=== PATIENT | male | born 1995 | race Caucasian/White ===

== ENCOUNTER 2017-02-08 12:18 | Emergency (ER) | payer MEDICAID ==
[~2017-02-08] VITALS: Ht 182.9 cm; Wt 129.3 kg
[~2017-02-08 12:18] MED LIST: ALBUTEROL200 PUFFS/ IH; AZITHROMYCIN250 MG PO; BACTRIM 400 MG-1 TAB PO; BROMFED DM COU118 ML PO; CEFDINIR 300MG300 MG PO; KEFLEX500 M1 PO; MEDROL 4MG. DOSE4 MG PO; MOTRIN 600MG.600 MG PO; NAPROSYN 500MG500 MG PO; NORCO 325 MG-51 TAB PO; SINGULAIR 10 MG10 MG PO; TESSALON PERLE100 M1 PO
--- OUTSIDE RECORDS SUMMARY | 2017-02-08 12:32 | External Medical Summary Rpt | CCD ---
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 RADEX 27217 [place] BEINE[place] D ELBOW 4 MEDICAL COMPLETE IMAGING MINIMUM 3 ASS VIEWS RADIOLOGI 25031 BRYANT BRYANT C 4 CONCHA CONCHA EXAMINATI ON KNEE 3 VIEWS FITTING 79407 SCIFRES SCIFRES SPECTACLE 4 ANG ANG S XCPT APHAKIA MONOFOCAL FRAMES V2020 SCIFRES SCIFRES PURCHASES 4 ANG ANG OPHTH 91118 SCIFRES SCIFRES MEDICAL 4 ANG ANG XM&EVAL COMPRHNSV ESTAB PT 1/> LENS V2784 SCIFRES SCIFRES POLYCARBO 4 ANG ANG YASMIN OR EQUAL ANY INDEX PER LENS SPHERE V2100 SCIFRES SCIFRES SINGLE 4 ANG ANG VISION PLANO +/- 4.00 PER LENS SCRATCH V2760 SCIFRES SCIFRES RESISTANT 4 ANG ANG COATING PER LENS RADEX 00113 [facility] RIBS UNI 4 [facility] W/POSTERO INC INC ANT CH MINIMUM 3 VIEWS RADEX 05247 BRYANT BRYANT RIBS 4 CONCHA CONCHA UNILATERA L 2 VIEWS RADEX 93286 KELLIE HOPKINS SHOULDER 4 [facility] COMPLETE INC INC MINIMUM 2 VIEWS RADIOLOGI 43161 KELLIE HOPKINS C EXAM 4 [facility] CHEST 2 INC INC VIEWS FRONTAL&L ATERAL IAADI 89705 KE[facility]IE [facility]OPKINS INFLUENZA 4 [facility] B VIRUS INC INC IAADI 85158 [facility] INFFLUENZ 4 [facility] A A VIRUS INC INC IAADIADOO 87607 YOANNA PINTO 3 STREPTOCO CCUS GROUP A ANTIBODY 50202 KELLIE HOPKINS BORDETELL 3 [facility] A INC INC NEBULIZER E0570 MARIYA MERAZ WITH 3 HOME HOME COMPRESSO MEDICAL MEDICAL R EQUIPME EQUIPME ADMN SET A7003 MARIYA MERAZ SM VOL 3 HOME HOME NONFILTR MEDICAL MEDICAL PNEUMAT EQUIPME EQUIPME NEBULIZR DISPBL IAADI 28935 KELLIE HOPKINS INFLUENZA 3 [facility] B VIRUS INC INC RADIOLOGI 91639 BRYANT HURTADO C EXAM 3 CONCHA CONCHA CHEST 2 VIEWS FRONTAL&L ATERAL PRESSURIZ 83890 KELLIE HOPKINS ED/NONPRE 3 [facility] SSURIZED INC INC INHALATIO N TREATMENT IAADI 81539 KELLIE HOPKINS INFFLUENZ 3 [facility] A A VIRUS INC INC PRESSURIZ 63604 YOANNA PINTO ED/NONPRE 3 SSURIZED INHALATIO N TREATMENT INJECTION J0696 YOANNA LENZ MILLIE 3 CEFTRIAXO NE SODIUM PER 250 MG INJECTION J1040 YOANNA LENZ MILLIE 3 METHYLPRE DNISOLONE ACETATE 80 MG THERAPEUT 39147 YOANNA PINTO IC 3 PROPHYLAC TIC/DX INJECTION SUBQ/IM ALBUTEROL J7620 YOANNA LENZ MILLIE TO 2.5 3 MG & IPRATROPI UM BROM TO 0.5 MG RADEX 82772 KELLIE HOPKINS FOOT 2 [facility] COMPLETE INC INC MINIMUM 3 VIEWS RADEX 85759 BRYANT BRYANT FOOT 2 CONCHA CONCHA COMPLETE MINIMUM 3 VIEWS RADEX 59978 BRYANT BRYANT ANKLE 2 CONCHA CONCHA COMPLETE MINIMUM 3 VIEWS RADIOLOGI 23714 KELLIE HOPKINS C 2 [facility] EXAMINATI INC INC ON FOOT 2 VIEWS RADEX 71134 [place] [facility] ANKLE 1 MEDICAL CONCHA COMPLETE IMAGING MINIMUM 3 ASS VIEWS RADEX 35361 [place] [facility] FOOT 1 MEDICAL CONCHA COMPLETE IMAGING MINIMUM 3 ASS VIEWS 1 VISN V2103 SABA PÉREZ PLANO 1 VISION ANG TO+/-4.00 D SPHER 0.12-2.00 D CYL EA FRAMES V2020 SABA PÉREZ PURCHASES 1 VISION ANG FITTING 59598 SABA PÉREZ SPECTACLE 1 VISION ANG S XCPT APHAKIA MONOFOCAL RADEX 55362 [place] [facility] FOOT 1 MEDICAL CONCHA COMPLETE IMAGING MINIMUM 3 ASS VIEWS IADNA 20796 Abby CASTILLO A STREPTOCO 1 ANNA PEREIRA CCUS PSC GROUP A QUANTIFIC ATION 00138 [place] ABDOMINAL 0 MEDICAL CONCHA REAL IMAGING TIME ASS W/IMAGE LIMITED CHIROPRA 83344 [place] LONG TIC 0 ROS MANIPULAT CHIROPRAC INGA TX TIC CENTE SPINAL 1-2 REGIONS CHIROPRA 59338 [place] LONG TIC 0 ROS MANIPLTV CHIROPRAC TX TIC CENTE EXTRASPIN AL 1/> REGION APPL 09827 [place] LONG MODALITY 0 ROS 1/> AREAS CHIROPRAC TRACTION TIC CENTE MECHANICA L APPL 25185 [place] LONG MODALITY 0 ROS 1/> AREAS CHIROPRAC ELEC TIC CENTE STIMJ UNATTENDE D APPL 41817 [place] LONG MODALITY 0 ROS 1/> AREAS CHIROPRAC ELEC TIC CENTE STIMJ UNATTENDE D CHIROPRAC 61595 [place] TIC 0 MANIPULAT CHIROPRAC CHIROPRAC INGA TX TIC CENTE TIC CENTE SPINAL 1-2 REGIONS APPL 72992 [place] LONG MODALITY 0 ROS 1/> AREAS CHIROPRAC TRACTION TIC CENTE MECHANICA L CHIROPRAC 81242 [place] LONG TIC 0 ROS MANIPLTV CHIROPRAC TX TIC CENTE EXTRASPIN AL 1/> REGION RPR&REFIT 75017 SABA MCNEIL, G 0 VISION IRAIDA A SPECTACLE S EXCEPT APHAKIA FRAMES V2020 SABA MCNEIL PURCHASES 0 VISION IRAIDA A 1 VISN V2103 SABA MCNEIL, PLANO 0 VISION IRAIDA A TO+/-4.00 D SPHER 0.12-2.00 D CYL EA IADNA 43736 Abby OAKES STREPTOCO 0 ANNA Ellis CCUS PSC GROUP A QUANTIFIC ATION IADNA 74266 Abby OAKES STREPTOCO 0 ANNA DENNIS PSC GROUP A QUANTIFIC ATION RADEX 98850 [facility] 0 Y Y MINIMUM 2 [facility] VIEWS RADEX 30495 KELLIE HOPKINS FINGR 9 [facility] MINIMUM [address] [facility] INC VIEWS CLTX 66145 JERRY MONTOYA FX 9 EMERGENCY SARAH SERVICES O PROX/MIDD LE PX/F/T ASSOCIATE W/O TAMMI S EA FITTING 83585 SABA SCIFRES, SPECTACLE 9 VISION ATA M S XCPT APHAKIA MONOFOCAL SPHERE V2100 SABA PÉREZ, SINGLE 9 VISION ATA M VISION PLANO +/- 4.00 PER LENS FRAMES V2020 SABA PÉREZ, PURCHASES 9 VISION ATA M OPHTH 36076 SABA PÉREZ, MEDICAL 9 VISION ATA Montero XM&EVAL COMPR[facility]NSV [facility] PT 1/> IADNA 85589 Abby OAKES STREPTOCO 9 ANNA Ellis CCUS PSC GROUP A QUANTIFIC ATION IADNA 83383 Abby OAKES STREPTOCO 9 ANNA Ellis CCUS PSC GROUP A QUANTIFIC ATION BLOOD 45814 Abby OAKES COUNT 9 ANNA Ellis COMPLETE PSC AUTO&AUTO DIFRNTL WBC RADEX 11355 KELLIE HOPKINS ELBOW 2 9 [facility] VIEWS INC INC RADEX 33970 KELLIE HOPKINS ELBOW 9 [facility] COMPLETE INC INC MINIMUM 3 VIEWS NONINVASI 12443 Abby OAKES VE 9 ANNA Ellis EAR/PULSE PSC OXIMETRY SINGLE DETER FRAMES V2020 TARUN MCNEIL, PURCHASES 8 IRAIDA A IRAIDA A SPHERE V2100 TARUN MCNEIL, SINGLE 8 IRAIDA A IRAIDA A VISION PLANO +/- 4.00 PER LENS OPHTH 52995 ROSANGELA ADAMES, MEDICAL 8 TRAE LARKIN XM&EVAL Jayro BEMRUDEZ NEW PT 1/> VST RPR&REFIT 74246 TARUN MCNEIL G 8 IRAIDA A IRAIDA A SPECTACLE S EXCEPT APHAKIA DETERMINA 20084 ROSANGELA ADAMES TION 8 TRAE LARKIN REFRACTIV W W E STATE CUL BACT 67648 [facility] XCPT 8 AMERIC AMERIC URINE HOLDING HOLDING BLOOD/STO OL AEROBIC ISOL IADNA 41676 Abby OAKES STREPTTRUPTI 8 ANNA Ellis CCUS PSC GROUP A QUANTIFIC ATION IADNA 18750 Abby OAKES STREPTOCO 8 ANNA Ellis CCUS PSC GROUP A QUANTIFIC ATION Encounters Encounter Start End Date Code Location Performer Type Date EMERGENCY 70503 FLAKITO RUIZ 6 6 [facility] MODERATE SEVERITY EMERGENCY 53592 KELLIE 6 6 [facility] DEPARTMEN INC T VISIT LOW/MODER SEVERITY HOSPITAL KE[facility] - 6 6 [facility] OUTPATIEN INC T EMERGENCY 73898 KELLIE 6 6 [facility] DEPARTMEN INC T VISIT LOW/MODER SEVERITY EMERGENCY 50167 FLAKITO RODRIGUEZ 6 6 PHYSICIAN [facility], [facility] T VISIT MODERATE SEVERITY HOSPITAL KELLIE - 6 6 [facility] OUTPATIEN INC T OFFICE [address] [facility] GUZMAN OUTPATIEN 5 5 PHYSICIAN MATTHEW T VISIT S GROUP 15 MINUTES OFFICE [address] [facility] GUZMAN OUTPATIEN 5 5 PHYSICIAN MATTHEW T VISIT S GROUP 10 MINUTES HOSPITAL KELLIE - 5 5 [facility] OUTPATIEN INC T OFFICE [address] [facility] GUZMAN OUTPATIEN 5 5 PHYSICIAN MATTHEW T VISIT S GROUP 15 MINUTES OFFICE [address] [facility] JEREMIAH OUTPATIEN 5 5 PHYSICIAN FERNANDA T VISIT S GROUP 10 MINUTES OFFICE [address] [facility] GUZMAN OUTPATIEN 5 5 PHYSICIAN MATTHEW T VISIT S GROUP 15 MINUTES OFFICE [address] [facility] JEREMIAH OUTPATIEN 5 5 PHYSICIAN FERNANDA T VISIT S GROUP 10 MINUTES OFFICE [address] [facility] GUZMAN OUTPATIEN 4 4 PHYSICIAN MATTHEW T VISIT S GROUP 15 MINUTES OFFICE [address] [facility] GUZMAN OUTPATIEN 4 4 PHYSICIAN MATTHEW T VISIT S GROUP 15 MINUTES HOSPITAL KELLIE - 4 4 [facility] OUTPATIEN INC T OFFICE 03120 Abby MORA OUTPATIEN 4 4 ANNA PEREIRA JEAbby T VISIT PSC 15 MINUTES EMERGENCY 80424 TRISTIN CLARK 4 4 PETER DEPARTMEN EMERGENCY T VISIT PHYS MODERATE SEVERITY OFFICE [address] [facility] GUZMAN OUTPATIEN 4 4 PHYSICIAN MATTHEW T VISIT S GROUP 10 MINUTES OFFICE [address] [facility] GUZMAN OUTPATIEN 4 4 PHYSICIAN MATTHEW T VISIT S GROUP 10 MINUTES OFFICE [address] [facility] GUZMAN OUTPATIEN 4 4 PHYSICIAN MATTHEW T VISIT S GROUP 15 MINUTES EMERGENCY 22108 [facility]LLIE 4 4 [facility] DEPARTMEN INC T VISIT LOW/MODER SEVERITY HOSPITAL KELLIE - 4 4 [facility] OUTPATIEN INC T EMERGENCY 62960 TRISTIN HINDS 4 4 PETER MATTHEW DEPARTMEN EMERGENCY T VISIT PHYS MODERATE SEVERITY OFFICE 24973 [facility] OUTPATIEN 4 4 MATTHEW MATTHEW T VISIT 10 MINUTES OFFICE 85991 [facility] GU[facility] OUTPATIEN 4 4 MATTHEW MATTHEW T VISIT 10 MINUTES HOSPITAL [facility] - 4 4 [facility] OUTPATIEN INC T OFFICE 64918 PERNELL CURRY PERNELL ANTOINETTE OUTPATIEN 4 4 T VISIT 25 MINUTES HOSPITAL KELLIE - 4 4 [facility] OUTPATIEN INC T EMERGENCY 33280 [facility] 4 4 [facility] DEPARTMEN INC T VISIT LOW/MODER SEVERITY EMERGENCY 12454 GI FLANNERY 4 4 DEPARTMEN T VISIT HIGH/URGE NT SEVERITY OFFICE [address] [facility] OUTPATIEN 4 4 PHYSICIAN T VISIT S GROUP 10 MINUTES OFFICE 25756 CHASITY CHASITY OUTPATIEN 4 4 KARIN KARIN T VISIT 10 MINUTES OFFICE [address] [facility] OUTPATIEN 4 4 PHYSICIAN T VISIT S GROUP [address]ES [address] [facility] OUTPATIEN 4 4 PHYSICIAN T VISIT S GROUP 10 MINUTES Emergency ESTRELLA Kellie Wang (ER) 4 10:00 4 11:20 [facility] KELLIE - 4 4 [facility] OUTPATIEN INC T EMERGENCY 83030 HIEU WANG [address] [facility] DEPARTMEN T VISIT MODERATE SEVERITY EMERGENCY 41950 [facility] 4 4 [facility] DEPARTMEN INC T VISIT LOW/MODER SEVERITY OFFICE 06603 A Rhonda CURRY OUTPATIEN 3 3 ANNA PEREIRA T VISIT PSC 15 MINUTES OFFICE 02497 A Rhonda MORA OUTPATIEN 3 3 ANNA PEREIRA JEA T VISIT PSC 15 MINUTES OFFICE [address] [facility] OUTPATIEN 3 3 PHYSICIAN T VISIT S GROUP 15 MINUTES OFFICE [address] [facility] OUTPATIEN 3 3 PHYSICIAN T VISIT S GROUP 15 MINUTES OFFICE [address] [facility] OUTPATIEN 3 3 PHYSICIAN T VISIT S GROUP 10 MINUTES OFFICE 65330 YOANNA PINTO OUTPATIEN 3 3 T VISIT 15 MINUTES OFFICE 84471 PERNELL CURRY OUTPATIEN 3 3 T VISIT 15 MINUTES HOSPITAL KELLIE - 3 3 [facility] OUTPATIEN INC T OFFICE 28924 KILPELA KILPELA OUTPATIEN 3 3 JEAbby JEA T VISIT 15 MINUTES EMERGENCY 00964 ROSANGELA FLANNERY 3 3 EMERGENCY DEPARTMEN SERVICES T VISIT HIGH/URGE NT SEVERITY HOSPITAL KELLIE - 3 3 [facility] OUTPATIEN INC T EMERGENCY 70513 [facility] 3 3 [facility] DEPARTMEN INC T VISIT LOW/MODER SEVERITY OFFICE 17427 YOANNA LENZ MILLIE OUTPATIEN 3 3 T VISIT [address] MIN[address]ES [address] [facility] OUTPATIEN 2 2 PHYSICIAN T VISIT S GROUP 15 MINUTES OFFICE 22917 CHASITY CHASITY OUTPATIEN 2 2 KARIN KARIN T VISIT 10 MINUTES OFFICE 68769 KILPELA KILPELA OUTPATIEN 2 2 JEA JEA T VISIT 15 MINUTES OFFICE 26803 KILPELA KILPELA OUTPATIEN 2 2 JEA JEA T VISIT 15 MINUTES OFFICE 81512 PERNELL ANTOINETTE PERNELL ANTOINETTE OUTPATIEN 2 2 T VISIT 15 MINUTES OFFICE 68991 YOANNA LENZ MILLIE OUTPATIEN 2 2 T VISIT 15 MINUTES EMERGENCY 63236 [facility] 2 2 [facility] DEPARTMEN INC T VISIT LOW/MODER SEVERITY HOSPITAL KELLIE - 2 2 [facility] OUTPATIEN INC T EMERGENCY 08300 ROSANGELA HOUSE 2 2 EMERGENCY ARIADNE DEPARTMEN SERVICES T VISIT MODERATE SEVERITY EMERGENCY 85351 HIEU WANG 2 2 III ARIADNE III ARIADNE DEPARTMEN T VISIT MODERATE SEVERITY EMERGENCY 63358 [facility] 2 2 [facility] DEPARTMEN INC T VISIT LIMITED/M INOR PROB HOSPITAL KELLIE - 2 2 [facility] OUTPATIEN INC T EMERGENCY 31799 [facility] 2 2 [facility] DEPARTMEN INC T VISIT LOW/MODER SEVERITY EMERGENCY 59330 ROSANGELA FLANNERY 2 2 EMERGENCY DEPARTMEN SERVICES T VISIT MODERATE SEVERITY HOSPITAL KELLIE - 2 2 [facility] OUTPATIEN INC T OFFICE 38611 PERNELL ANTOINETTE PERNELL ANTOINETTE OUTPATIEN 2 2 T VISIT 15 MINUTES OFFICE 51339 NEISHA DRIVER OUTPATIEN 2 2 CHR CHR T VISIT 10 MINUTES OFFICE 04288 A Rhonda CASTILLO A OUTPATIEN 1 1 ANNA PEREIRA T VISIT PSC 15 MINUTES OFFICE 82036 A Rhonda Mora OUTPATIEN 1 1 ANNA PEREIRA T VISIT PSC 15 MINUTES EMERGENCY 42739 ROSANGELA MIXON 1 1 EMERGENCY [facility] SERVICES T VISIT HIGH/URGE NT SEVERITY EMERGENCY 15404 [facility] 1 1 [facility] DEPARTMEN INC T VISIT LOW/MODER SEVERITY HOSPITAL KELLIE - 1 1 [facility] OUTPATIEN INC T OFFICE 18531 A Rhonda CASTILLO A OUTPATIEN 1 1 ANNA PEREIRA T VISIT PSC 15 MINUTES OFFICE 52109 A Rhonda CASTILLO A OUTPATIEN 0 0 ANNA PEREIRA T VISIT PSC 15 MINUTES HOSPITAL KELLIE - 0 0 [facility] OUTPATIEN INC T OFFICE 75585 A Rhonda CASTILLO A OUTPATIEN 0 0 ANNA PEREIRA T VISIT PSC 15 MINUTES OFFICE 04138 A Rhonda CASTILLO A OUTPATIEN 0 0 ANNA PEREIRA T VISIT PSC 15 MINUTES OFFICE 05085 A Rhonda CASTILLO A OUTPATIEN 0 0 ANNA PEREIRA T VISIT PSC 15 MINUTES OFFICE 29430 A Rhonda CASTILLO A OUTPATIEN 0 0 ANNA PEREIRA T VISIT PSC 15 MINUTES OFFICE 58661 A Rhonda Mora OUTPATIEN 0 0 ANNA PEREIRA T VISIT PSC 15 MINUTES OFFICE 82894 A Rhonda CASTILLO A OUTPATIEN 0 0 ANNA PEREIRA T VISIT PSC 15 MINUTES OFFICE 65485 A Abby ENGLE OUTPATIEN 0 0 ANNA PEREIRA C T VISIT PSC 15 MINUTES OFFICE 36751 A Rhonda CASTILLO A OUTPATIEN 0 0 ANNA PEREIRA C T VISIT PSC 15 MINUTES OFFICE 21191 Abby OAKES OUTPATIEN 0 0 ANNA Ellis T VISIT PSC 15 MINUTES HOSPITAL UNIVERSIT - 0 0 Y [facility] T OFFICE 61268 MARJ MCCALL OUTPATIEN 0 0 MEDICAL [facility]OOK[facility] T VISIT 5 SERV A MINUTES [facility] OFFICE 57208 MARJ AGUIRREALISON OUTPATIEN 0 0 MEDICAL COOKEI T VISIT SERV A 10 FOUNDATIO MINUTES HOSPITAL UNIVERSIT - 0 0 Y [facility] T OFFICE 34344 SONNY BOPATIEN 9 9 MEDICAL [place] T NEW [address] [facility] KELLIE - 9 9 [facility] OUTPATIEN INC T EMERGENCY 38806 KELLIE 9 9 [facility] DEPARTMEN INC T VISIT LOW/MODER SEVERITY OFFICE 83949 Abby OAKESPATIJOSE G 9 9 ANNA Ellis T VISIT PSC 15 MINUTES OFFICE 04232 Abby OAKES OUTPATIJOSE G 9 9 ANNA Ellis T VISIT PSC 15 MINUTES OFFICE 44262 Abby OAKES 9 9 ANNA Ellis T VISIT PSC 15 MINUTES OFFICE 60746 Abby OAKES OUTPATIJOSE G 9 9 ANNA Ellis T VISIT PSC 15 MINUTES OFFICE 07235 Abby OAKES OUTPATIJOSE G 9 9 ANNA Ellis T VISIT PSC 15 MINUTES OFFICE 44203 Abby OAKES OUTPATIJOSE G 9 9 ANNA Ellis T VISIT PSC 15 MINUTES OFFICE 78092 Abby OAKES 9 9 ANNA Ellis T VISIT PSC 15 MINUTES EMERGENCY 11930 [facility] 9 9 [facility] DEPARTMEN INC T VISIT LOW/MODER SEVERITY HOSPITAL KELLIE - 9 9 [facility] OUTPATIEN INC T EMERGENCY 11869 ROSANGELA STOKES, 9 9 EMERGENCY [facility] SERVICES T VISIT HIGH/URGE ASSOCIATE NT S SEVERITY OFFICE 56142 Abby OAKES OUTPATIEN 9 9 ANNA Ellis T VISIT PSC 15 MINUTES OFFICE 64840 Abby OAKES OUTPATIEN 9 9 ANNA Ellis T VISIT PSC 15 MINUTES OFFICE 97490 Abby OAKES OUTPATIEN 9 9 ANNA Ellis T VISIT PSC 15 MINUTES OFFICE 69726 Abby OAKES OUTPATIEN 9 9 ANNA Ellis T VISIT PSC 15 MINUTES OFFICE 74155 Abby OAKES OUTPATIEN 8 8 ANNA Ellis T VISIT PSC 15 MINUTES OFFICE 46270 Abby OAKES OUTPATIEN 8 8 ANNA Ellis T VISIT PSC 15 MINUTES OFFICE 92480 Abby OAKES OUTPATIEN 8 8 ANNA Ellis T VISIT PSC 15 MINUTES OFFICE 71697 Abby OAKES OUTPATIEN 8 8 ANNA Ellis T VISIT PSC 15 MINUTES OFFICE 86058 Abby OAKES OUTPATIEN 8 8 ANNA Ellis T VISIT PSC 15 MINUTES OFFICE 18485 [facility] OUTPATIEN 8 8 [facility] [place] T VISIT [facility] 15 BANK ACCT MINUTES OFFICE 17866 [facility] OUTPATIEN 8 8 [facility] [place] T VISIT [facility] 15 BANK ACCT MINUTES OFFICE 49323 Abby OAKES OUTPATIEN 8 8 ANNA Ellis T VISIT PSC 15 MINUTES OFFICE 54056 [facility] OUTPATIEN 8 8 [facility] [place] T VISIT [facility] 15 BANK ACCT MINUTES OFFICE 60383 [facility] OUTPATIEN 8 8 [facility] [place] T VISIT [facility] 15 BANK ACCT MINUTES OFFICE 21189 [facility] OUTPATIEN 8 8 [facility] [place] T VISIT [facility] 15 BANK ACCT MINUTES OFFICE 02189 [facility] OUTPATIEN 8 8 [facility] [place] T V[facility] 15 BANK ACCT MINUTES OFFICE 06064 [facility] OUTPATIEN 8 8 [facility] [place] T VISIT [facility] 15 BANK ACCT MINUTES OFFICE 82054 [facility] OUTPATIEN 8 8 [facility] [place] T VISIT [facility] 15 BANK ACCT MINUTES OFFICE 63341 [facility] OUTPATIEN 8 8 [facility] [place] T VISIT [facility] 15 BANK ACCT MINUTES OFFICE 76953 [facility] OUTPATIEN 8 8 [facility] [place] T VISIT [facility] 15 BANK ACCT MINUTES OFFICE 69960 [facility] OUTPATIEN 8 8 [facility] [place] T VISIT [facility] 15 BANK ACCT MINUTES OFFICE 50213 [facility] OUTPATIEN 8 8 [facility] [place] T VISIT [facility] 15 BANK ACCT MINUTES OFFICE 57683 [facility] OUTPATIEN 8 8 [facility] [place] T VISIT [facility] 15 BANK ACCT MINUTES OFFICE 85662 Abby OAKES OUTPATIEN 8 8 ANNA [place] VISIT PSC 15 MINUTES OFFICE 72258 Abby OAKES OUTPATIEN 8 8 ANNA [place] VISIT PSC 15 MINUTES OFFICE 75800 Abby OAKES OUTPATIEN 8 8 ANNA [place] VISIT PSC 15 MINUTES OFFICE 04227 [facility] OUTPATIEN 8 8 [facility] [place] T VISIT [facility] 15 BANK ACCT MINUTES OFFICE 91324 Abby OAKES OUTPATIEN 8 8 ANNA [place] VISIT PSC 15 MINUTES OFFICE 47512 [facility] OUTPATIEN 8 8 [facility] [place] T VISIT [facility] 15 BANK ACCT MINUTES OFFICE 56172 Abby OAKES OUTPATIJOSE G 8 8 ANNA [place] VISIT [facility] 15 MINUTES OFFICE 25827 Abby OAKES OUTPATIEN 8 8 ANNA [place] VISIT [facility] 15 MINUTES OFFICE 63380 [facility] OUTPATIEN 8 8 [facility]ALTH [place] T VISIT [facility] 15 BANK ACCT MINUTES
--- OUTSIDE RECORDS SUMMARY | 2017-02-08 12:32 | External Medical Summary Rpt | CCD ---
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 [facility] 15 BANK ACCT MINUT[facility] OFFICE 20211 [facility] OUTPATIEN 8 8 [facility] [place] T VISIT [facility] 15 BANK ACCT MINUTES OFFICE 50641 [facility] OUTPATIEN 8 8 [facility] [place] T VISIT [facility] 15 BANK ACCT MINUT[facility] OFFICE 24374 [facility] OUTPATIEN 8 8 [facility] T VISIT [facility] 15 BANK ACCT MINUTES OFFICE 32721 [facility] OUTPATIEN 8 8 [facility] [place] T VISIT [facility] 15 BANK ACCT MINUTES OFFICE 10452 Abby OAKES OUTPATIEN 8 8 [place] VISIT [facility] 15 MINUTES OFFICE 42704 Abby OAKES OUTPATIEN 8 8 [place] VISIT [facility] 15 MINUTES OFFICE 76356 Abby OAKES OUTPATIEN 8 8 ANNA [place] VISIT [facility] 15 MINUTES OFFICE 00040 [facility] OUTPATIEN 8 8 [facility] T VISIT [facility] 15 BANK ACCT MINUTES OFFICE 35271 Abby OAKES OUTPATIEN 8 8 ANNA [place] VISIT [facility] 15 MINUTES OFFICE 84548 [facility] OUTPATIEN 8 8 [facility] T VISIT [facility] 15 BANK ACCT MINUTES OFFICE 17178 Abby OAKES OUTPATIJOSE G 8 8 [place] VISIT [facility] 15 MINUTES OFFICE 79885 Abby OAKES OUTPATIEN 8 8 [place]NA [place] VISIT [facility] 15 MINUTES OFFICE 23505 [facility] OUTPATIEN 8 8 [facility] T VISIT [facility] 15 BANK ACCT MINUTES
--- OUTSIDE RECORDS SUMMARY | 2017-02-08 12:38 | External Medical Summary Rpt | CCD ---
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 [facility] OFFICE 52479 SHERYL BO 0 0 [facility] T VISIT SERV A 10 FOUNDATIO MINUTES OFFICE 76672 SHERYL BO 9 9 [facility] T NEW 20 SERV A MINUTES [facility] - 9 9 [facility] OUTPATIEN INC T EMERGENCY 13545 [facility] 9 9 [facility] DEPARTMEN INC T VISIT LOW/MODER SEVERITY OFFICE 27328 A Abby ENGLE OUTPATIEN 9 9 ANNA PEREIRA C T VISIT PSC 15 MINUTES OFFICE 08555 Abby OAKES OUTPATIEN 9 9 ANNA Ellis T VISIT PSC 15 MINUTES OFFICE 09294 Abby OAKES OUTPATIEN 9 9 ANNA Ellis T VISIT PSC 15 MINUTES OFFICE 34758 Abby OAKES OUTPATIEN 9 9 ANNA Ellis T VISIT PSC 15 MINUTES OFFICE 78417 Abby OAKES OUTPATIEN 9 9 ANNA Ellis T VISIT PSC 15 MINUTES OFFICE 43800 A Abby ENGLE OUTPATIEN 9 9 ANNA Ellis T VISIT PSC 15 MINUTES OFFICE 22266 A Abby ENGLE OUTPATIEN 9 9 ANNA Elils T VISIT PSC 15 MINUTES EMERGENCY 23356 ROSANGELA STOKES, 9 9 EMERGENCY [facility] DEPARTMEN SERVICES T VISIT HIGH/URGE ASSOCIATE NT S SEVERITY EMERGENCY 19029 [facility] 9 9 [facility] DEPARTMEN INC T VISIT LOW/MODER SEVERITY [facility]OSPITAL [facility] - 9 9 [facility] OUTPATI[facility] INC T OFFICE 35846 Abby OAKES OUTPATIEN 9 9 ANNA Ellis T VISIT PSC 15 MINUTES OFFICE 39839 Abby OAKES OUTPATIEN 9 9 ANNA Ellis T VISIT PSC 15 MINUTES OFFICE 42136 Abby OAKES OUTPATIEN 9 9 ANNA Ellis T VISIT PSC 15 MINUTES OFFICE 87635 Abby OAKES OUTPATIEN 9 9 ANNA Ellis T VISIT PSC 15 MINUTES OFFICE 82950 Abby OAKES OUTPATIEN 8 8 ANNA Ellis T VISIT PSC 15 MINUTES OFFICE 25906 Abby OAKES OUTPATIEN 8 8 ANNA Ellis T VISIT PSC 15 MINUTES OFFICE 37464 Abby OAKES OUTPATIEN 8 8 ANNA Ellis T VISIT PSC 15 MINUTES OFFICE 09522 Abby OAKES OUTPATIEN 8 8 ANNA [place] VISIT PSC 15 MINUTES OFFICE 41250 Abby OAKES OUTPATIEN 8 8 ANNA Ellis T VISIT PSC 15 MINUTES OFFICE 20145 [facility] OUTPATIEN 8 8 [facility] 15 BANK ACCT MINUTES OFFICE 44176 [facility] OUTPATIEN 8 8 [facility] 15 BANK ACCT MINUTES OFFICE 40742 Abby OAKES OUTPATIEN 8 8 ANNA Ellis T VISIT [facility] 15 MINUTES OFFICE 98467 [facility] OUTPATIEN 8 8 [facility] V[facility] 15 BANK ACCT MINUTES OFFICE 47877 [facility] OUTPATIEN 8 8 [facility] 15 BANK ACCT MINUTES OFFICE 64876 [facility] OUTPATIEN 8 8 [facility] 15 BANK ACCT MINUTES OFFICE 95877 [facility] OUTPATIEN 8 8 [facility] 15 BANK ACCT MINUTES OFFICE 27123 [facility] OUTPATIEN 8 8 [facility] 15 BANK ACCT MINUTES OFFICE 07697 [facility] OUTPATIEN 8 8 [facility] 15 BANK ACCT MINUT[facility] OFFICE 27011 [facility] OUTPATIEN 8 8 [facility] 15 BANK ACCT MINUTES OFFICE 00489 [facility] OUTPATIEN 8 8 [facility] 15 BANK ACCT MINUTES OFFICE 02011 [facility] OUTPATIEN 8 8 [facility] 15 BANK ACCT MINUTES OFFICE 43037 [facility] OUTPATIEN 8 8 [facility] T VISIT [facility] 15 BANK ACCT MINUTES OFFICE 66832 [facility] OUTPATIEN 8 8 [facility] V[facility] 15 BANK ACCT MINUTES OFFICE 45153 Abby OAKES OUTPATIEN 8 8 ANNA [place] VISIT [facility] 15 MINUTES OFFICE 30478 Abby OAKES OUTPATIEN 8 8 ANNA [place] VISIT [facility] 15 MINUTES OFFICE 85365 Abby OAKES OUTPATIEN 8 8 ANNA [place] VISIT [facility] 15 MINUTES OFFICE 19905 [facility] OUTPATIEN 8 8 [facility] V[facility] 15 BANK ACCT MINUTES OFFICE 77266 Abby OAKES OUTPATIEN 8 8 ANNA [place] VISIT [facility] 15 MINUTES OFFICE 47551 [facility] OUTPATIEN 8 8 [facility] 15 BANK ACCT MINUTES OFFICE 50299 Abby OAKES OUTPATIEN 8 8 ANNA [place] VISIT [facility] 15 MINUTES OFFICE 74083 Abby OAKES OUTPATIEN 8 8 ANNA [place] VISIT [facility] 15 MINUTES OFFICE 06453 [facility] OUTPATIEN 8 8 [facility] V[facility] 15 BANK ACCT MINUTES
--- OUTSIDE RECORDS SUMMARY | 2017-02-08 12:38 | External Medical Summary Rpt | CCD ---
Author Author , CHRISTIN [place] CHRISTIN Address Unknown Phone [email or web address] Care Team Providers Care Configuration Management Architect Name Role Phone A Rhonda CASTILLO MD [facility]SC, A Unavailable Unavailable Rhonda CASTILLO MD [facility] [employer] Unavailable Unavailable INC, [employer] [...] Unavailable Unavailable [facility] [facility] Un[facility] Un[place] [place] [facility] [place] [place] CHASITY KARIN, Unavailable Unavailable CHASITY KARIN CHASITY KARIN, Unavailable Unavailable CHASITY KARIN ADRIAN STOKES, Unavailable Unavailable ADRIAN STOKES GUZMAN MATTHEW, GUZMAN Unavailable Unavailable MATTHEW GUZMAN MATTHEW, GUZMAN Unavailable Unavailable MATTHEW [facility] Unavailable Unavailable INC, [facility] MCNEIL DONNA, MCNEIL DONNA Unavailable Unavailable MCNEIL DONNA, MCNEIL DONNA Unavailable Unavailable MCNEIL, IRAIDA A, Unavailable Unavailable MCNEIL, IRAIDA A [facility], Unavailable Unavailable [facility] BANEGAS MICHAEL, BANEGAS MICHAEL Unavailable Unavailable JEREMIAH FERNANDA, JEREMIAH Unavailable Unavailable FERNANDA [facility] Un[facility] Un[facility], [facility] [...] Unavailable MIXON KEVIN, MIXON Unavailable Unavailable KEVIN [facility] Unavailable Unavailable [facility], [facility], Unavailable Unavailable PLLC, [facility] [...] Unavailable Unavailable EQUIPME, [facility] Unavailable [facility]available EMERGENCY PHYS, [facility]YS [facility], Unavailable Unavailable [facility] WEHRMAN III ARIADNE, Unavailable Unavailable WEHRMAN III ARIADNE WEHRMAN III ARIADNE, Unavailable Unavailable WEHRMAN III ARIADNE GI PRUDENCIO, GI PRUDENCIO Unavailable Unavailable WELLS PRUDENCIO, WELLS PRUDENCIO Unavailable Unavailable WELLS SHA, WELLS SHA Unavailable Unavailable NESIHA CHR, NEISHA Unavailable Unavailable CHR CASTILLO A, CASTILLO A Unavailable Unavailable Abby CASTILLO C, CASTILLO, Unavailable Unavailable A C Purpose Continuity of Care Document - 03-14-2007 through 2016 Problems Code Diagnosis DOS Provider Status [id number] CUTANEOUS 07-24-2015 [facility] ABSCESS OF PHYSICIANS, RIGHT UPPER PLLC LIMB [id number] CELLULITIS 07-24-2015 [facility] OF RIGHT [facility] FINGER INC [id number] SUPERFICIAL 07-24-2015 [facility] FOREIGN PHYSICIANS, BODY RT PLLC THUMB INITIAL ENCNTR B372 CANDIDIASIS 06-06-2015 [facility] OF SKIN PHYSICIANS, AND NAIL PLLC H5213 MYOPIA 01-29-2015 MCNEIL DONNA BILATERAL 462 ACUTE 05-22-2014 [facility] PHARYNGITIS PHYSICIANS GROUP 7862 COUGH 05-22-2014 [facility] 25286 NAUSEA WITH 05-08-2014 [facility] VOMITING PHYSICIANS GROUP 1043 PAIN IN 04-10-2014 [place] SOFT [facility]ICAL TISSUES OF IMAGING ASS LIMB 72509 GENERALIZED 04-10-2014 [facility] PAIN [facility] INC 9595 INJURY 04-10-2014 [place] OTHER AND MEDICAL UNSPECIFIED IMAGING ASS FINGER 9599 INJURY 04-10-2014 [facility] OTHER AND [facility] UNSPECIFIED INC UNSPECIFIED SITE 4779 ALLERGIC 04-02-2014 [facility] RHINITIS PHYSICIANS CAUSE GROUP UNSPECIFIED 82860 EFFUSION OF 01-11-2014 [facility] ANKLE AND [facility] FOOT JOINT INC 53760 PAIN IN 01-11-2014 [place] JOINT, MEDICAL ANKLE AND IMAGING ASS FOOT 9597 INJURY 01-11-2014 [place] OTHER&UNSPE MEDICAL CIFIED KNEE IMAGING ASS LEG ANKLE&FOOT 42357 UNSPECIFIED 01-08-2014 A Rhonda CASTILLO SITE OF MD BOLDEN ANKLE SPRAIN AND STRAIN E8809 ACCIDENTAL 01-05-2014 [facility] FALL ON OR N EMERGENCY FROM OTHER PHYS STAIRS OR STEPS V719 OBSERVATION 01-05-2014 [place] FOR MEDICAL UNSPECIFIED IMAGING ASS SUSPECTED CONDITION 37165 ACUT 12-20-2013 [facility] SUPPRATV PHYSICIANS OTITIS GROUP MEDIA W/O SPONT RUP EARDRUM 40814 INTESTINAL 11-27-2013 [facility] INF PHYSICIANS ENTERITIS GROUP DUE OTH VIRAL ENTERITIS 09254 UNSPECIFIED 11-13-2013 [facility] INFECTIVE PHYSICIANS OTITIS GROUP EXTERNA 3829 UNSPECIFIED 11-13-2013 [facility] OTITIS PHYSICIANS MEDIA GROUP 79296 ASTHMA, 11-02-2013 [facility] UNSPECIFIED [facility] , INC UNSPECIFIED STATUS 39527 PAIN IN 11-02-2013 [place] JOINT, MEDICAL UPPER ARM IMAGING ASS 8419 SPRAIN&STRA 11-02-2013 [facility] IN N EMERGENCY UNSPECIFIED PHYS SITE ELBOW&FOREA RM 9190 ABRASION/FR 11-02-2013 [facility] ICION BURN N EMERGENCY OTH MX&UNS PHYS SITE W/O INF E8881 FALL 11-02-2013 [facility] RESULTING N EMERGENCY IN STRIKING PHYS AGAINST OTHER OBJECT 82723 EFFUSION OF 10-09-2013 [facility] LOWER LEG CONCHA JOINT 11521 PAIN IN 10-09-2013 [facility] JOINT, CONCHA LOWER LEG 8449 SPRAIN&STRA 10-09-2013 [facility] IN OF [facility] UNSPECIFIED INC SITE OF KNEE&LEG 8489 UNSPECIFIED 10-09-2013 [facility] SITE OF SPRAIN AND STRAIN 3671 MYOPIA 09-28-2013 SCIFRES ANG 9221 CONTUSION 06-13-2013 [facility] CURRY OF CHEST WALL 14073 PAIN IN 06-11-2013 [facility] JOINT, CONCHA SHOULDER REGION 03184 CHEST PAIN 06-11-2013 [facility] UNSPECIFIED CONCHA E8859 FALL FROM 06-11-2013 WELLS PRUDENCIO OTHER SLIPPING TRIPPING OR STUMBLING 4659 ACUTE URIS 06-07-2013 [facility] OF PHYSICIANS UNSPECIFIED GROUP SITE 4660 ACUTE 05-17-2013 CHASITY BRONCHITIS KARIN 486 PNEUMONIA, 03-13-2013 WEHRMAN III ORGANISM ARIADNE UNSPECIFIED 4770 ALLERGIC 07-12-2012 A Rhonda CASTILLO RHINITIS PSC DUE TO POLLEN 4619 ACUTE 05-24-2012 [facility] SINUSITIS, PHYSICIANS UNSPECIFIED GROUP 37809 UNS ADVRS 04-21-2012 [facility] EFF OTH RX PHYSICIANS MEDICINAL&B GROUP IOLOGICAL SBSTNC 06126 COUGH 03-11-2012 KILPELA JEA VARIANT ASTHMA 41539 SHORTNESS 03-05-2012 [facility] OF BREATH [facility] INC 77387 CONTUSION 11-09-2011 [place] OF FOOT EMERGENCY SERVICES E8888 OTHER FALL 11-09-2011 [facility] 50625 SPRAIN AND 10-19-2011 [facility] STRAIN OF [facility] UNSPECIFIED INC SITE OF FOOT 73921 CLOSED 10-12-2011 [facility] FRACTURE OF MEM HOSP METATARSAL INC BONE 9110 TRUNK 06-23-2011 [facility] ANTOINETTE ABRASION/FR ICTION BURN WITHOUT MENTION INF 9243 CONTUSION 03-24-2010 [facility] OF TOE [facility] INC 67988 CRUSHING 03-24-2010 [place] [place] INJURY OF EMERGENCY FOOT SERVICES 88364 ABDOMINAL 01-30-2010 [place] PAIN RIGHT MEDICAL UPPER IMAGING ASS QUADRANT 19333 VOMITING 01-28-2010 A Rhonda VEE MD PSC [...] 05-02-2009 A Rhonda EVANGELISTA MD PSC THROAT 98784 CLOS 04-11-2009 [place] [facility] MID/PROXIMA FOUNDATIO L PHALANX/PHA LANG HAND V5412 AFTERCARE 04-11-2009 [place] [facility] TRAUMATIC FOUNDATIO FRACTURE LOWER ARM V5489 OTHER 04-11-2009 [facility] AFTERCARE 08145 CLOSED 02-28-2009 [place] [facility] UNSPEC FOUNDATIO PHALANX/PHA LANGES HAND 75549 UNSPECIFIED 12-05-2008 A Rhonda CASTILLO VIRAL PSC INFECTION IN CCE & UNS SITE 0088 INTESTINAL 11-15-2008 A Rhonda CASTILLO INFECTION PSC DUE TO OTHER ORGANISM NEC 4720 CHRONIC 10-03-2008 A Rhonda CASTILLO RHINITIS PSC 72211 ASTHMA 10-03-2008 A Rhonda BAEZIFIED PSC WITH STATUS ASTHMATICUS 72082 CONTUSION 09-08-2008 [facility] E8490 PLACE OF 09-08-2008 [place] OCC[facility]RENCE[facility] 2398 NEOPLASM 07-02-2008 A Rhonda BAEZ MD PSC NATURE OTHER SPEC SITES 7242 LUMBAGO 05-22-2008 A Rhonda CASTILLO MD [facility] 7847 EPISTAXIS 05-22-2008 A Rhonda CASTILLO MD [facility] 17635 PRECORDIAL 02-04-2008 A Rhonda CASTILLO PAIN [facility] 7841 THROAT PAIN 11-25-2007 [facility] 3814 NONSUPPRATV 06-30-2007 A Rhonda CASTILLO OTITIS PSC MEDIA NOT SPEC ACUT/CHRON 91393 CHRONIC 03-28-2007 A Rhonda CASTILLO OBSTRUCTIVE PSC [...] 0 20 10 EA 20 MU Ac MA 09 -2 -[address] 94 LL [...] CY OF CY NT HI AN A MA 00 11 11 0 20 5 EA [...] Procedure DOS Code Location Performer Comment INCISION 71826 [facility] RENUSCH & 6 PHYSICIAN LISHA DRAINAGE S, PLLC ABSCESS SIMPLE/SI NGLE THERAPEUT 14384 [facility] IC 6 [facility] PROPHYLAC INC INC TIC/DX INJECTION SUBQ/IM OPHTH 45219 MCNEILKRYSTA THOMPSON [facility] MEDICAL 5 XM&EVAL COMPRHNSV ESTAB PT 1/> FRAMES V2020 MCNEILKRYSTA THOMPSON MCNEIL DONNA PURCHASES 5 1 VISN V2103 MCNEILKRYSTA THOMPSON MCNEIL DONNA PLANO 5 TO+/-4.00 D SPHER 0.12-2.00 D CYL EA SCRATCH V2760 MCNEILKRYSTA THOMPSON MCNEIL DONNA RESISTANT 5 COATING PER LENS LENS V2784 MCNEILKRYSTA THOMPSON MCNEIL DONNA POLYCARBO 5 YASMIN OR EQUAL ANY INDEX PER LENS FITTING 21108 MCNEILKRYSTA ANDERSONNES DONNA SPECTACLE 5 S XCPT APHAKIA MONOFOCAL IAADIADOO 30968 [facility] GUZMAN 5 PHYSICIAN MATTHEW STREPTOCO S GROUP CCUS GROUP A RADEX 77115 [facility] CON[facility] MINIMUM 2 IMAGING VIEWS ASS IAADIADOO 53491 [facility] GUZMAN 4 PHYSICIAN MATTHEW STREPTOCO S GROUP CCUS GROUP A RADEX 75178 [facility] BEINEKE FOOT 4 MEDICAL ELVIS COMPLETE IMAGING MINIMUM 3 ASS VIEWS RADEX 07288 [facility] BEINEKE ANKLE 4 MEDICAL ELVIS COMPLETE IMAGING MINIMUM 3 ASS VIEWS RADEX 42017 [facility] BRYANT ANKLE 4 MEDICAL CONCHA COMPLETE IMAGING MINIMUM 3 ASS VIEWS RADEX 87848 [facility] BRYANT FOOT 4 MEDICAL CONCHA COMPLETE IMAGING MINIMUM 3 ASS VIEWS ANK FT L1906 [facility] 4 TECHNOLOG TECHNOLOG MX-LIG IES INC IES INC ANK SUPT PREFB OFF SHELF RADEX 11869 [facility] PALACIOS D ELBOW 4 MEDICAL COMPLETE IMAGING MINIMUM 3 ASS VIEWS RADIOLOGI 93324 [facility] BRYANT C 4 CONCHA CONCHA EXAMINATI ON KNEE 3 VIEWS SPHERE V2100 SCIFRES SCIFRES SINGLE 4 ANG ANG VISION PLANO +/- 4.00 PER LENS FITTING 47537 SCIFRES SCIFRES SPECTACLE 4 ANG ANG S XCPT APHAKIA MONOFOCAL OPHTH 40736 SCIFRES SCIFRES MEDICAL 4 ANG ANG XM&EVAL COMPRHNSV ESTAB PT 1/> FRAMES V2020 SCIFRES SCIFRES PURCHASES 4 ANG ANG SCRATCH V2760 SCIFRES SCIFRES RESISTANT 4 ANG ANG COATING PER LENS LENS V2784 SCIFRES SCIFRES POLYCARBO 4 ANG ANG YASMIN OR EQUAL ANY INDEX PER LENS RADEX 96992 [facility] RIBS UNI 4 [facility] W/POSTERO INC INC ANT CH MINIMUM 3 VIEWS RADEX 44181 [facility] BRYANT RIBS 4 CONCHA CONCHA UNILATERA L 2 VIEWS RADEX 10360 [facility] SHOULDER 4 [facility] COMPLETE INC INC MINIMUM 2 VIEWS RADIOLOGI 69143 [facility] C EXAM 4 MEM [facility]OS[facility] CHEST 2 INC INC VIEWS FRONTAL&L ATERAL IAADI 20137 [facility] INFLUENZA 4 [facility] B VIRUS INC INC IAADI 48709 [facility] KELLIE INFFLUENZ 4 MEM HOSP [facility]OS[facility] A A VIRUS INC INC IAADIADOO 05000 Y[facility]ANNA PINTO 3 STREPTOCO CCUS GROUP A ADMN SET A7003 [facility] MERAZ SM VOL 3 HOME HOME NONFILTR MEDICAL MEDICAL PNEUMAT EQUIPME EQUIPME NEBULIZR DISPBL NEBULIZER E0570 MARIYA MARIYA WITH 3 HOME HOME COMPRESSO MEDICAL MEDICAL R EQUIPME EQUIPME ANTIBODY 08464 [facility] BORDETELL 3 [facility] HOS[facility]OS[facility] A INC INC IAADI 36972 [facility] INFLUENZA 3 [facility] B VIRUS INC INC IAADI 71052 [facility] RODRIGUEZON INFFLUENZ 3 MEM HOSP [facility]OS[facility] A A VIRUS INC INC RADIOLOGI 13300 [facility] HURTADO C EXAM 3 CONCHA CONCHA CHEST 2 VIEWS FRONTAL&L ATERAL PRESSURIZ 32728 [facility] ED/NONPRE 3 [facility] SSURIZED INC INC INHALATIO N TREATMENT ALBUTEROL J7620 YOANNA LENZ MILLIE TO 2.5 3 MG & IPRATROPI UM BROM TO 0.5 MG THERAPEUT 99486 YOANNA PINTO IC 3 PROPHYLAC TIC/DX INJECTION SUBQ/IM PRESSURIZ 06465 YOANNA PINTO ED/NONPRE 3 SSURIZED INHALATIO N TREATMENT INJECTION J0696 YOANNA LENZ MILLIE 3 CEFTRIAXO NE SODIUM PER 250 MG INJECTION J1040 YOANNA PINTO 3 METHYLPRE DNISOLONE ACETATE 80 MG RADEX 28333 [facility] FOOT 2 [facility] COMPLETE INC INC MINIMUM 3 VIEWS RADEX 16553 [facility] BRYANT FOOT 2 CONCHA CONCHA COMPLETE MINIMUM 3 VIEWS RADEX 05205 [facility] BRYANT ANKLE 2 CONCHA CONCHA COMPLETE MINIMUM 3 VIEWS RADIOLOGI 35799 [facility] C 2 [facility] EXAMINATI INC INC ON FOOT 2 VIEWS RADEX 46252 [facility] BRYANT ANKLE 1 MEDICAL CONCHA COMPLETE IMAGING MINIMUM 3 ASS VIEWS RADEX 98940 [facility] BRYANT FOOT 1 MEDICAL CONCHA COMPLETE IMAGING MINIMUM 3 ASS VIEWS 1 VISN V2103 SABA PÉREZ PLANO 1 VISION ANG TO+/-4.00 D SPHER 0.12-2.00 D CYL EA FRAMES V2020 SABA PÉREZ PURCHASES 1 VISION ANG FITTING 72159 SABA PÉREZ SPECTACLE 1 VISION ANG S XCPT APHAKIA MONOFOCAL RADEX 89015 [facility] BRYANT FOOT 1 MEDICAL CONCHA COMPLETE IMAGING MINIMUM 3 ASS VIEWS IADNA 95010 Abby CASTILLO A STREPTOCO 1 ANNA PEREIRA [place] [address] [facility] BRYANT ABDOMINAL 0 MEDICAL CONCHA REAL IMAGING TIME ASS W/IMAGE LIMITED CHIROPRAC 39568 [place] TIC 0 ROS MANIPULAT CHIROPRAC INGA TX TIC CENTE SPINAL 1-2 REGIONS CHIROPRAC 68522 [place] [facility] TIC 0 ROS MANIPLTV CHIROPRAC TX TIC CENTE EXTRASPIN AL 1/> REGION APPL 24577 [place] [facility] MODALITY 0 ROS 1/> AREAS CHIROPRAC ELEC TIC CENTE STIMJ UNATTENDE D APPL 91330 [place] [facility] MODALITY 0 ROS 1/> AREAS CHIROPRAC TRACTION TIC CENTE MECHANICA L APPL 20517 [place] LONG MODALITY 0 ROS 1/> AREAS CHIROPRAC TRACTION TIC CENTE MECHANICA L CHIROPRAC 38557 [place] TIC 0 ROS MANIPLTV CHIROPRAC TX TIC CENTE EXTRASPIN AL 1/> REGION APPL 74968 [place] LONG MODALITY 0 ROS 1/> AREAS CHIROPRAC ELEC TIC CENTE STIMJ UNATTENDE D CHIROPRAC 12578 [place] TIC 0 MANIPULAT CHIROPRAC CHIROPRAC INGA TX TIC CENTE TIC CENTE SPINAL 1-2 REGIONS FRAMES V2020 SABA MCNEIL, PURCHASES 0 VISION IRAIDA A 1 VISN V2103 SABA MCNEIL, PLANO 0 VISION IRAIDA A TO+/-4.00 D SPHER 0.12-2.00 D CYL EA RPR&REFIT 63764 SABA MCNEIL, G 0 VISION IRAIDA A SPECTACLE S EXCEPT APHAKIA IADNA 03505 Abby OAKES STREPTOCO 0 ANNA Ellis CCUS PSC GROUP A QUANTIFIC ATION IADNA 33757 Abby OAKES STREPTTRUPTI 0 ANNA Ellis CCUS PSC GROUP A QUANTIFIC ATION RADEX 34325 [facility] F[facility]R 0 Y Y MINIMUM 2 HOSPITAL HOSPITAL VIEWS CLTX 40248 JERRY MONTOYA FX 9 EMERGENCY SARAH SERVICES O PROX/MIDD LE PX/F/T ASSOCIATE W/O MANJ S EA RADEX 80391 [facility] FINGR 9 [facility] MINIMUM 2 INC INC VIEWS OPHTH 29737 SABA ELISA MEDICAL 9 VISION ATA M XM&EVAL COMPRHNSV ESTAB PT 1/> FITTING 21094 SABA L[place], SPECTACLE 9 VISION ATA M S XCPT APHAKIA MONOFOCAL SPHERE V2100 SABA PÉREZ, SINGLE 9 VISION ATA M VISION PLANO +/- 4.00 PER LENS FRAMES V2020 SABA PÉREZ, PURCHASES 9 VISION ATA M IADNA 99887 Abby OAKES STREPTOCO 9 ANNA Ellis CCUS PSC GROUP A QUANTIFIC ATION IADNA 03667 Abby OAKES STREPTOCO 9 ANNA Ellis CCUS PSC GROUP A QUANTIFIC ATION BLOOD 87404 Abby OAKES COUNT 9 ANNA Ellis COMPLETE PSC AUTO&AUTO DIFRNTL WBC RADEX 09857 [facility] ELBOW 2 9 [facility] H[facility] VIEWS INC INC RADEX 76278 [facility] RODRIGUEZON ELBOW 9 [facility] H[facility] COMPLETE INC INC MINIMUM 3 VIEWS NONINVASI 49579 Abby OAKES 9 ANNA Ellis EAR/PULSE PSC OXIMETRY SINGLE DETER OPHTH 30997 ROSANGELA ADAMES, MEDICAL 8 TRAE LARKIN XM&EVAL W W COMPRE NEW PT 1/> VST RPR&REFIT 21492 TARUN MCNEIL, G 8 IRAIDA A IRAIDA A SPECTACLE S EXCEPT APHAKIA FRAMES V2020 TARUN MCNEIL, PURCHASES 8 IRAIDA A IRAIDA A SPHERE V2100 TARUN MCNEIL, SINGLE 8 IRAIDA A IRAIDA A VISION PLANO +/- 4.00 PER LENS DETERMINA 62473 ROSANGELA ADAMES TIGIANCARLO 8 TRAE LARKIN REFRACTIV W W E STATE CUL BACT 96008 [facility] XCPT 8 [facility] [employer] [facility] HOLDING BLOOD/STO OL AEROBIC ISOL IADNA 98512 Abby OAKES MD CCUS PSC GROUP A QUANTIFIC ATION IADNA 37709 Abby OAKES MD CCUS PSC GROUP A QUANTIFIC ATION Encounters Encounter Start End Date Code Location Performer Type Date EMERGENCY [facility]1520 [facility] - 6 6 [facility] T EMERGENCY 04808 FLAKITO RUIZ 6 6 PHYSICIAN LISHA Bailey [facility] T VISIT MODERATE SEVERITY EMERGENCY 20513 FLAKITO RODRIGUEZ 6 6 PHYSICIAN JOHNNY S [facility] T VISIT MODERATE SEVERITY HOSPITAL KELLIE - 6 6 [facility] INC T EMERGENCY 41411 [facility] 6 6 [facility] T VISIT LOW/MODER SEVERITY OFFICE 02541 [facility] GUZMAN OUTPATIEN 5 5 PHYSICIAN MATTHEW T VISIT S GROUP 15 MINUTES OFFICE 63529 [facility] GUZMAN OUTPATIEN 5 5 PHYSICIAN MATTHEW T VISIT S GROUP 10 MINUTES HOSPITAL [facility] - 5 5 [facility] OUTPATIEN INC T OFFICE 57611 [facility] GUZMAN OUTPATIEN 5 5 PHYSICIAN MATTHEW T VISIT S GROUP 15 MINUTES OFFICE 53222 [facility] JEREMIAH OUTPATIEN 5 5 PHYSICIAN FERNANDA T VISIT S GROUP 10 MINUTES OFFICE 89489 [facility] GUZMAN OUTPATIEN 5 5 PHYSICIAN MATTHEW T VISIT S GROUP 15 MINUTES OFFICE 35216 [facility] JEREMIAH OUTPATIEN 5 5 PHYSICIAN FERNANDA T VISIT S GROUP 10 MINUTES OFFICE 57733 [facility] GUZMAN OUTPATIEN 4 4 PHYSICIAN MATTHEW T VISIT S GROUP 15 MINUTES HOSPITAL [facility] - 4 4 [facility] OUTPATIEN INC T OFFICE 24481 [facility] GUZMAN OUTPATIEN 4 4 PHYSICIAN MATTHEW T VISIT S GROUP 15 MINUTES OFFICE 95858 Abby DENNISPATIJOSE G 4 4 ANNA PEREIRA JEAbby T VISIT PSC 15 MINUTES EMERGENCY 57498 [facility] GI CLARK 4 4 PETER DEPARTMEN EMERGENCY T VISIT PHYS MODERATE SEVERITY OFFICE 68422 [facility] GUZMAN OUTPATIEN 4 4 PHYSICIAN MATTHEW T VISIT S GROUP 10 MINUTES OFFICE 50633 [facility] GUZMAN OUTPATIEN 4 4 PHYSICIAN MATTHEW T VISIT S GROUP 10 MINUTES OFFICE 59511 [facility] GUZMAN OUTPATIEN 4 4 PHYSICIAN MATTHEW T VISIT S GROUP 15 MINUTES HOSPITAL KE[facility] - 4 4 [facility] OUTPATIEN INC T EMERGENCY 71880 [facility] GUZMAN 4 4 PETER MATTHEW DEPARTMEN EMERGENCY T VISIT PHYS MODERATE SEVERITY EMERGENCY 63449 [facility] 4 4 [facility] DEPARTMEN INC T VISIT LOW/MODER SEVERITY OFFICE 84146 [facility] OUTPATIEN 4 4 MATTHEW MATTHEW T VISIT 10 MINUTES OFFICE 15427 [facility] OUTPATIEN 4 4 MATTHEW MATTHEW T VISIT 10 MINUTES HOSPITAL [facility] - 4 4 [facility] OUTPATIEN INC T OFFICE 55692 [facility] ANTOINETTE RAINEYES ANTOINETTE OUTPATIEN 4 4 T VISIT 25 MINUTES HOSPITAL [facility] - 4 4 [facility] OUTPATIEN INC T EMERGENCY 91641 GI FLANNERY 4 4 DEPARTMEN T VISIT HIGH/URGE NT SEVERITY EMERGENCY 19416 [facility] 4 4 [facility] DEPARTMEN INC T VISIT LOW/MODER SEVERITY OFFICE 61730 [facility] OUTPATIEN 4 4 PHYSICIAN T VISIT S GROUP 10 MINUTES OFFICE 45352 [facility] CHASITY OUTPATIEN 4 4 KARIN KARIN T VISIT 10 MINUTES OFFICE 69951 [facility] OUTPATIEN 4 4 PHYSICIAN T VISIT S GROUP 15 MINUTES OFFICE 35342 [facility] OUTPATIEN 4 4 PHYSICIAN T VISIT S GROUP 10 MINUTES EMERGENCY 86037 [facility] 4 4 [facility] T VISIT LOW/MODER SEVERITY EMERGENCY 82245 HIEU HAGEN 4 4 III ARIADNE III ARIADNE DEPARTMEN T VISIT MODERATE SEVERITY HOSPITAL [facility] - 4 4 [facility] OUTPATI[facility] INC T OFFICE 89116 A Rhonda CURRY OUTPATIEN 3 3 ANNA PEREIRA T VISIT PSC 15 MINUTES OFFICE 21814 A Rhonda DENNISPATIJOSE G 3 3 ANNA PEREIRA JEA T VISIT PSC 15 MINUTES OFFICE 42636 [facility] OUTPATIEN 3 3 PHYSICIAN T VISIT S GROUP 15 MINUTES OFFICE 79298 [facility] OUTPATIEN 3 3 PHYSICIAN T VISIT S GROUP 15 MINUTES OFFICE 74867 [facility] OUTPATIEN 3 3 PHYSICIAN T VISIT S GROUP 10 MINUTES OFFICE 19142 YOANNA PINTO OUTPATIEN 3 3 T VISIT 15 MINUTES OFFICE 95924 [facility] POPE ANTOINETTE OUTPATIEN 3 3 T VISIT 15 MINUTES HOSPITAL KE[facility]IE - 3 3 [facility] OUTPATIEN INC T OFFICE 48320 KILPELA KILPELA OUTPATIEN 3 3 JEA JEA T VISIT 15 MINUTES EMERGENCY 38146 [facility] 3 3 [facility] DEPARTMEN INC T VISIT LOW/MODER SEVERITY HOSPITAL KE[facility] - 3 3 [facility] OUTPATIEN INC T EMERGENCY 63801 ROSANGELA FLANNERY 3 3 EMERGENCY DEPARTMEN SERVICES T VISIT HIGH/URGE NT SEVERITY OFFICE 09396 YOANNA LENZ MILLIE OUTPATIEN 3 3 T VISIT 15 MINUTES OFFICE 43715 [facility] OUTPATIEN 2 2 PHYSICIAN T VISIT S GROUP 15 MINUTES OFFICE 84425 [facility] CHASITY OUTPATIEN 2 2 KARIN KARIN T VISIT 10 MINUTES OFFICE 24264 K[facility] KILPELA OUTPATIEN 2 2 JEA JEA T VISIT 15 MINUTES OFFICE 36948 K[facility] KILPELA OUTPATIEN 2 2 JEA JEA T VISIT 15 MINUTES OFFICE 79436 [facility] CURRY PERNELL ANTOINETTE OUTPATIEN 2 2 T VISIT 15 MINUTES OFFICE 58037 YOANNA LENZ MILLIE OUTPATIEN 2 2 T VISIT 15 MINUTES [facility] - [facility] 2 [facility] T EMERGENCY 60089 KELLIE 2 2 [facility] DEPART[facility] INC T VISIT LOW/MODER SEVERITY EMERGENCY 28555 ROSANGELA HOUSE 2 2 EMERGENCY [facility] EMERGENC[facility] DEPARTMENT SERVICES T VISIT MODERATE SEVERITY HOSPITAL KELLIE - 2 2 [facility] T EMERGENCY 20380 DAVELOBITO CRISTOBALLOBITO 2 2 III ARIADNE III [facility] EMERGENCY DEPARTMENT T VISIT MODERATE SEVERITY EMERGENCY 69881 KELLIE 2 2 [facility] T VISIT LIMITED/M INOR PROB EMERGENCY 84178 ROSANGELA FLANNERY 2 2 [facility] T VISIT MODERATE SEVERITY EMERGENCY 16703 KELLIE 2 2 [facility] T VISIT LOW/MODER SEVERITY HOSPITAL KELLIE - 2 2 [facility] T OFFICE 69838 PERNELL POPE ANTOINETTE OUTPATIEN 2 2 T VISIT 15 MINUTES OFFICE 93073 NEISHA DRIVER OUTPATIEN 2 2 [facility] T VISIT 10 MINUTES OFFICE 86982 A Rhonda CASTILLO A OUTPATIEN 1 1 ANNA PEREIRA T VISIT PSC 15 MINUTES OFFICE 04186 A Rhonda Mora OUTPATIEN 1 1 ANNA PEREIRA T VISIT PSC 15 MINUTES HOSPITAL KELLIE - 1 1 [facility] T EMERGENCY 95139 [facility] T VISIT LOW/MODER SEVERITY EMERGENCY 64535 ROSANGELA MIXON 1 1 EMERGENCY [facility] SERVICES T VISIT HIGH/URGE NT SEVERITY OFFICE 90993 A Rhonda Mora OUTPATIEN 1 1 ANNA PEREIRA T VISIT PSC 15 MINUTES HOSPITAL EKLLIE - 0 0 [facility] T OFFICE 46239 A Rhonda Mora OUTPATIEN 0 0 ANNA PEREIRA T VISIT PSC 15 MINUTES OFFICE 47568 A Rhonda Mora OUTPATIEN 0 0 ANNA PEREIRA T VISIT PSC 15 MINUTES OFFICE 61589 A Rhonda Mora OUTPATIEN 0 0 ANNA PEREIRA T VISIT PSC 15 MINUTES OFFICE 03032 A Rhonda Mora OUTPATIEN 0 0 ANNA PEREIRA T VISIT PSC 15 MINUTES OFFICE 28657 A Rhonda Mora OUTPATIEN 0 0 ANNA PEREIRA T VISIT PSC 15 MINUTES OFFICE 42116 A Rhonda Mora OUTPATIEN 0 0 ANNA PEREIRA T VISIT PSC 15 MINUTES OFFICE 38315 A Rhodna Mora OUTPATIEN 0 0 ANNA PEREIRA T VISIT PSC 15 MINUTES OFFICE 75058 A Abby ENGLE OUTPATIEN 0 0 ANNA Ellis T VISIT PSC 15 MINUTES OFFICE 38785 A Abby ENGLE OUTPATIEN 0 0 ANNA Ellis T VISIT PSC 15 MINUTES OFFICE 48005 A Abby ENGLE OUTPATIEN 0 0 ANNA PEREIRA C T VISIT PSC 15 MINUTES OFFICE 83863 SHERYL BO 0 0 [facility] T VISIT 5 SERV A MINUTES [facility] UNIVERSIT - 0 0 Y [facility] UNIVERSIT - 0 0 Y [facility] OFFICE 47184 SHERYL BO 0 0 [facility] T VISIT SERV A 10 FOUNDATIO MINUTES OFFICE 46638 SHERYL BO 9 9 [facility] T NEW 20 SERV A MINUTES [facility] KELLIE - 9 9 [facility] OUT[facility] INC T EMERGENCY 31928 KELLIE 9 9 [facility] DEPARTMEN INC T VISIT LOW/MODER SEVERITY OFFICE 77813 A Abby ENGLE OUTPATIEN 9 9 ANNA PEREIRA C T VISIT PSC 15 MINUTES OFFICE [id number] Abby OAKES OUTPATIEN 9 9 ANNA Ellis T VISIT PSC 15 MINUTES OFFICE 23593 Abby OAKES OUTPATIEN 9 9 ANNA Ellis T VISIT PSC 15 MINUTES OFFICE [id number] Abby OAKES OUTPATIEN 9 9 ANNA Ellis T VISIT PSC 15 MINUTES OFFICE 06098 Abby OAKES OUTPATIEN 9 9 ANNA Ellis T VISIT PSC 15 MINUTES OFFICE 29882 A Abby ENGLE OUTPATIEN 9 9 ANNA Ellis T VISIT PSC 15 MINUTES OFFICE 30560 A Abby ENGLE OUTPATIEN 9 9 ANNA Ellis T VISIT PSC 15 MINUTES EMERGENCY 63298 ROSANGELA STOKES, 9 9 EMERGENCY [facility] DEPARTMEN SERVICES T VISIT HIGH/URGE ASSOCIATE NT S SEVERITY EMERGENCY 59503 KELLIE 9 9 [facility] T VISIT LOW/MODER SEVERITY [facility]OSP[facility] - 9 9 [facility] T OFFICE 30747 Abby OAKES OUTPATIEN 9 9 ANNA Ellis T VISIT PSC 15 MINUTES OFFICE 98558 Abby OAKES OUTPATIEN 9 9 ANNA Ellis T VISIT PSC 15 MINUTES OFFICE 20400 Abby OAKES OUTPATIEN 9 9 ANNA Ellis T VISIT PSC 15 MINUTES OFFICE 65773 Abby OAKES OUTPATIEN 9 9 ANNA Ellis T VISIT PSC 15 MINUTES OFFICE 28839 Abby OAKES OUTPATIEN 8 8 ANNA Ellis T VISIT PSC 15 MINUTES OFFICE 78564 Abby OAKES OUTPATIEN 8 8 ANNA Ellis T VISIT PSC 15 MINUTES OFFICE 86457 Abby OAKES OUTPATIEN 8 8 ANNA Ellis T VISIT PSC 15 MINUTES OFFICE 97809 Abby OAKES OUTPATIEN 8 8 ANNA [place] VISIT PSC 15 MINUTES OFFICE 63274 Abby OAKES OUTPATIEN 8 8 ANNA Ellis T VISIT PSC 15 MINUTES OFFICE 47988 [facility] OUTPATIEN 8 8 [facility] V[facility] 15 BANK ACCT MINUTES OFFICE 89571 [facility] OUTPATIEN 8 8 [facility] [facility] 15 BANK ACCT MINUTES OFFICE 81605 Abby OAKES OUTPATIEN 8 8 ANNA Ellis T VISIT [facility] 15 MINUTES OFFICE 88522 [facility] OUTPATIEN 8 8 [facility] [place] [facility] V[facility] 15 BANK ACCT MINUTES OFFICE 63256 [facility] OUTPATIEN 8 8 [facility] [place] [facility] VIS[facility] 15 BANK ACCT MINUTES OFFICE 08682 [facility] OUTPATIEN 8 8 [facility] [facility] 15 BANK ACCT MINUTES OFFICE 36354 [facility] OUTPATIEN 8 8 [facility] [facility] 15 BANK ACCT MINUTES OFFICE 63059 [facility] OUTPATIEN 8 8 [facility] [place] [facility] VIS[facility] 15 BANK ACCT MINUTES OFFICE 23236 [facility] OUTPATIEN 8 8 [facility] [facility] 15 BANK ACCT MINUTES OFFICE 05203 [facility] OUTPATIEN 8 8 [facility] [facility] 15 BANK ACCT MINUTES OFFICE 63764 [facility] OUTPATIEN 8 8 [facility] [facility] 15 BANK ACCT MINUTES OFFICE 03371 [facility] OUTPATIEN 8 8 [facility] [facility] 15 BANK ACCT MINUTES OFFICE 41171 [facility] OUTPATIEN 8 8 [facility] [facility] VISIT [facility] 15 BANK ACCT MINUTES OFFICE 86147 [facility] OUTPATIEN 8 8 [facility] VIS[facility] 15 BANK ACCT MINUTES OFFICE 17833 Abby OAKES OUTPATIEN 8 8 ANNA [place] VISIT [facility] 15 MINUTES OFFICE 80139 Abby OAKES OUTPATIEN 8 8 ANNA [place] VISIT [facility] 15 MINUTES OFFICE 39386 Abby OAKES OUTPATIEN 8 8 ANNA [place] VISIT P[facility] 15 MINUTES OFFICE 57730 [facility] OUTPATIEN 8 8 [facility] V[facility] 15 BANK ACCT MINUTES OFFICE 92094 Abby OAKES OUTPATIEN 8 8 ANNA [place] VISIT [facility] 15 MINUTES OFFICE 56664 [facility] OUTPATIEN 8 8 [facility] V[facility] 15 BANK ACCT MINUTES OFFICE 28554 Abby OAKES OUTPATIEN 8 8 ANNA [place] VISIT [facility] 15 MINUTES OFFICE 42920 Abby OAKES OUTPATIEN 8 8 ANNA [place] VISIT [facility] 15 MINUTES OFFICE 20862 [facility] OUTPATIEN 8 8 [facility] V[facility] 15 BANK ACCT MINUTES
--- OUTSIDE RECORDS SUMMARY | 2017-02-08 12:40 | External Medical Summary Rpt | CCD ---
Author Author , CHRISTIN Organization [facility] Address Unknown Phone [email or web address] Immunization Name Date Rout CVX Reac Dose Comm Prov Is Faci e tion ent ider Refu lity Give sed n DTaP 08-2 107 999 Hist H149 No H149 , UF 4-20 oric 01 al Info rmat ion - Sour ce Unsp ecif ied Rachid 08-2 10 999 Hist H149 No H149 o-IP 4-20 oric V 01 al Info rmat ion - Sour ce Unsp ecif ied Vari 08-1 21 999 Hist H149 No H149 cell 9-19 oric a 99 al Info rmat ion - Sour ce Unsp ecif ied DTaP 07-1 107 999 Hist H149 No H149 , UF 5-19 oric 98 al Info rmat ion - Sour ce Unsp ecif ied Hib, 07-1 17 999 Hist H149 No H149 UF 5-19 oric 98 al Info rmat ion - Sour ce Unsp ecif ied Rachid 04-2 2 999 Hist H149 No H149 o-OP 2-19 oric V 98 al Info rmat ion - Sour ce Unsp ecif ied MMR 04-2 3 999 Hist H149 No H149 2-19 oric 98 al Info rmat ion - Sour ce Unsp ecif ied Hep 01-2 8 999 Hist H149 No H149 B, 3-19 oric ped/ 98 al adol Info rmat ion - Sour ce Unsp ecif ied Hib, 10-2 17 999 Hist H149 No H149 UF 0-19 oric 97 al Info rmat ion - Sour ce Unsp ecif ied DTaP 10-2 107 999 Hist H149 No H149 , UF 0-19 oric 97 al Info rmat ion - Sour ce Unsp ecif ied Hib, 08-1 17 999 Hist H149 No H149 UF 8-19 oric 97 al Info rmat ion - Sour ce Unsp ecif ied DTaP 08-1 107 999 Hist H149 No H149 , UF 8-19 oric 97 al Info rmat ion - Sour ce Unsp ecif ied Rachid 08- 10 999 Hist H149 No H149 o-IP 8 ori V 97 al Info rmat ion - Sour ce Unsp ecif ied Rachid 06- 10 999 Hist H149 No H149 o-IP - ori V 97 al Info rmat ion - Sour ce Unsp ecif ied DTaP 06- 107 999 Hist H149 No H149 , UF 09-16 ori 97 al Info rmat ion - Sour ce Unsp ecif ied Hib, 07-30 17 999 Hist H149 No H149 UF 7- ori 97 al Info rmat ion - Sour ce Unsp ecif ied Hep 05- 8 999 Hist H149 No H149 B, - [facility] ped/ 97 al adol Info rmat ion - Sour ce Unsp ecif ied
--- OUTSIDE RECORDS SUMMARY | 2017-02-08 12:40 | External Medical Summary Rpt | CCD ---
Author Author , CHRISTIN Organization [facility] Address Unknown Phone [email or web address] Immunization Name Date Rout CVX Reac Dose [...] 999 Hist H149 No H149 B, - [facility] ped/ 97 al adol Info rmat ion - Sour ce Unsp ecif ied
[2017-02-08] MEDS ORDERED: AMOXICILLIN875 MG PO (13:08)
--- NOTE | 2017-02-08 13:09 | Urgent Treatment Center Report ---
History of Present Issue Date/Time Seen by Provider 02/08/17 1245 Visit Reason Pt arrived:Walked Presenting Problem:COUGH, SINUS PRESSURE LEFT EAR PAIN, HEAD CONGESTION X 4 DAYS Location if Accident: Onset of symptoms date/time:/ or onset unknown for:MEDICAL HX UNKNOWN Have you (or family members/close friends) recently traveled outside the [place]? N If Yes, where/when: Have you had exposure to infectious disease within the past month? TB? Other? Specify: Here w/ mom primarily due to left ear pain 2-3 days. Started with head congestion, drainage, cough 3-4 days ago. Multiple family members with similiar symptoms. Two dx sinusitis and one bronchitis. No treatment prior to arrival. Source patient, family Exam Limitations no limitations ALLERGIES Coded Allergies: No Known Allergies (07/24/15) Home Medications Active Scripts Cephalexin (Keflex 500MG) 500 MG PO TID #30 CAP Prov: 07/24/15 History Medical History General CAD? No Angina: No AR: No Hypertension? No Hyperlipidemia? No CHF? No DVT? No PE? No COPD? No Asthma? Yes Anemia? No GERD? No Gastric ulcers? No GI Bleed? No Hernia? No Thyroid Problems? No Hypothyroidism? No CVA? No Seizures? No Diabetes? No Renal Insuffiency? No UTI? No Stones? No BPH? No GB Disease: No Nephritic Syndrome? No Asplenia? No Hepatitis? No Sickle Cell Disease? No Arthritis? No Migraines? No Cataracts? No Glaucoma? No MRSA? No HIV? No TB? No Anxiety? No Depression? No Cancer? No Immunization HX Ped.Immunizations UTD Yes DT/Tetanus 1-4 YRS Surgical Hx Previous Surgery?N Social History Smoking Hx Smoker: Never Smoker Tobacco: No Alcohol Alcohol: No Review of Systems All Other Systems Reviewed and Negative Constitutional see HPI, denies chills, denies fever, denies malaise Eyes denies drainage ENT see HPI, nose discharge, nose congestion, other (change hearing). denies: ear discharge, throat pain. Respiratory see HPI, denies shortness of breath, denies wheezing Gastrointestinal denies no symptoms reported Musculoskeletal denies joint pain Skin denies rash Psychiatric/Neurological denies headache Physical Exam Vital Signs Vital Signs Date Time Temp Pulse Resp B/P Pulse O2 O2 Flow FiO2 Ox Delivery Rate 02/08 1330 98 20 138/90 98 02/08 1253 98.2 69 18 140/90 97 General Appearance no apparent distress, obese Eye Exam - bilateral eye normal exam Ear, Nose, Throat normal pharynx, nasal congestion, karla EAC and right TM unremarkable, left TM bulging and erythematous Neck non-tender, supple Respiratory Status No: respiratory distress, productive cough, non productive cough. Lung Sounds anterior: lungs clear. posterior: lungs clear. bilateral: lungs clear. Cardiovascular regular rate/rhythm, no peripheral edema, no murmur Neurologic alert, oriented x 3 Mental status normal mood/affect Skin normal color, warm/dry Lymphatic no adenopathy Medical Decision Making LABS/Meds/Orders Pt receiving controlled substance in ED? No Departure Departure Time of Disposition 1306 Disposition DC Home or Self Care(routine) Clinical Impression Primary Impression: Left otitis media Qualifiers: Otitis media type: suppurative Chronicity: acute Recurrence: not specified as recurrent Spontaneous tympanic membrane rupture: without spontaneous rupture Qualified Code: H66.002 - Acute suppurative otitis media without spontaneous rupture of ear drum, left ear Condition STABLE Referrals Pipe Albert MD (Family) Immediately for new or worsening symptoms, no noticeable improvement in 48-72 hours AND in 10-14 days to ensure ears are back to baseline. Patient Instructions DI for Otitis Media (Middle Ear Infection)-Child Additional Instructions * Start antibiotic HETAL and be sure to take as ordered for the FULL length of time although you should start to feel better in 24-48 hours. * Monitor Temp. Tylenol every 4 hours as needed no more then 5 times a day or 4000mg in 24 hours and/or ibuprofen every 6 hours as needed no more then 3200mg in 24 hours (as long as your primary care doctor has told you that it is ok to take both) for fever/aches/pain. ER if fever no less than 101 despite Tylenol and ibuprofen * Encourage fluids, water, Gatorade, PowerAde, pedialyte if /toddler/child * warm compress often helps when placed over ear * sleep elevated * humidifier/vaporizer * warm salt water gargles * warm fluids * sore throat lozenges Discharge Counseling Counseled pt/family regarding diagnosis, medications/RX, home care, follow up needs Prescriptions Current Visit Scripts AMOXICILLIN (Amoxicillin 875MG Tab) 875 MG PO BID #20 TAB at 5384
[2017-02-08 13:30] VITALS: BP 138/90
== END 2017-02-08 13:32 | disposition home or self-care (01) ==
LOC: UTC 12:18
DX: H66.92 Otitis media, unspecified, left ear (principal)